=== PATIENT | male | born 1955 | race Caucasian/White ===

== ENCOUNTER 2017-12-11 16:05 | Outpatient (CLI) | END 2017-12-11 16:06 | disposition home or self-care (01) | LOC: FCC-LAB 16:05 | PROVIDERS: ATTEND Family Medicine | DX: E11.9 Type 2 diabetes mellitus without complications (principal); I10 Essential (primary) hypertension; D72.829 Elevated white blood cell count, unspecified | CPT/HCPCS: 36415; 80053; 80061; 83036; 85027 ==

== ENCOUNTER 2018-06-20 14:55 | Outpatient (CLI) | END 2018-06-20 14:56 | disposition home or self-care (01) | LOC: FCC-LAB 14:55 | PROVIDERS: ATTEND Family Medicine | DX: D72.829 Elevated white blood cell count, unspecified (principal); I10 Essential (primary) hypertension; E11.9 Type 2 diabetes mellitus without complications | CPT/HCPCS: 36415; 82043; 83037; 85025 ==

== ENCOUNTER 2018-12-18 17:31 | Outpatient (CLI) | END 2018-12-18 17:32 | disposition home or self-care (01) | LOC: LAB 17:31 | PROVIDERS: ATTEND Family Medicine | DX: D72.829 Elevated white blood cell count, unspecified (principal); E11.9 Type 2 diabetes mellitus without complications; E78.2 Mixed hyperlipidemia; R80.9 Proteinuria, unspecified | CPT/HCPCS: 36415; 80053; 80061; 83036; 85025 ==